=== PATIENT | female | born 1945 | race Two or more races ===

== ENCOUNTER → 2021-03-13 | Emergency (ER) | payer OTHER, MEDICAID ==
[~2021-03-13] VITALS: Ht 160 cm; Wt 76.2 kg
[~2021-03-13] MED LIST: ACETAMINOPHEN/CODEINE#3 (300/30mg) TAB PO ONE; ONDANSETRON ODT 4 MG TAB PO ONE
[2021-03-13 20:08] VITALS: BP 189/72
== END | disposition home or self-care (01) ==
LOC: ER 19:18
DX: S83.91XA Sprain of unspecified site of right knee, initial encounter (principal); M13.861 Other specified arthritis, right knee; E78.5 Hyperlipidemia, unspecified; I10 Essential (primary) hypertension; X58.XXXA Exposure to other specified factors, initial encounter; Y93.89 Activity, other specified; Y92.89 Other specified places as the place of occurrence of the external cause; Y99.8 Other external cause status
CPT/HCPCS: 73562; 93971; 99284; Q0162